=== PATIENT | male | born 1965 | race Caucasian/White ===

== ENCOUNTER 2016-12-01 11:19 | Emergency (ER) | payer OTHER ==
[~2016-12-01] VITALS: Ht 172.7 cm; Wt 79.4 kg
[2016-12-01 13:22] VITALS: BP 138/72
== END 2016-12-01 13:22 | disposition home or self-care (01) ==
LOC: ED 11:19
DX: M54.16 Radiculopathy, lumbar region (principal); M54.5 Low back pain
CPT/HCPCS: J1100; J1885

== ENCOUNTER 2018-08-10 10:36 | Emergency (ER) | payer BC, OTHER | END 2018-08-10 13:44 | disposition short-term general hospital (02) | LOC: ED 10:36 ==